=== PATIENT | female | born 1985 | race African-American/Black ===

== ENCOUNTER → 2016-11-06 | Outpatient (REF) | payer OTHER ==
[2016-11-06 16:30] LABS: ANION GAP 8 MEQ/L (8-16); BLOOD UREA NITROGEN 9 MG/DL (7-18); CALCIUM LEVEL 8.6 MG/DL (8.5-10.1); CARBON DIOXIDE LEVEL 27 MEQ/L (21-32); CHLORIDE LEVEL 104 MEQ/L (98-107); CREATININE FOR GFR 0.85 MG/DL (0.55-1.02); GLOMERULAR FILTRATION RATE > 60.0 (>60); GLUCOSE, FASTING 78 MG/DL (70-105); POTASSIUM SERUM 4.4 MEQ/L (3.5-5.1); SODIUM LEVEL 139 MEQ/L (136-145)
[2016-11-07 09:26] LABS: HIV SCRN NEGATIVE (NEGATIVE)
[2016-11-07 09:27] LABS: CONTROL LINE INT CTR LINE PRESENT; HIV SCRN1 NEGATIVE (NEGATIVE)
== END ==
LOC: M SFHCPLAZ 13:21
PROVIDERS: ATTEND Internal Medicine Infectious Disease
DX: Z11.3 Encounter for screening for infections with a predominantly sexual mode of transmission (principal); Z20.6 Contact with and (suspected) exposure to human immunodeficiency virus [HIV]

== ENCOUNTER → 2017-02-05 | Outpatient (REF) | payer OTHER ==
[2017-02-05 15:58] LABS: BASO % 0.5 % (0.0-1.0); EOS # 0.2 K/mm3 (0.0-0.50); EOS % 3.4 % (0.0-3.0); LARGE UNSTAINED CELL # 0.1 K/mm3 (0.0-0.4); LARGE UNSTAINED CELL % 2.2 % (0.0-4.0); LYMPH # 2.7 K/mm3 (1.5-4.5); LYMPH % 45.5 % (24.0-44.0); MEAN CORPUSCULAR HEMOGLOBIN 29.8 pg (27.0-33.0); MEAN CORPUSCULAR HGB CONC 33.8 g/dl (32.0-36.5); MEAN CORPUSCULAR VOLUME 88.4 fl (80.0-96.0); MONO # 0.3 K/mm3 (0.0-0.8); MONO % 5.9 % (0.0-5.0); NEUTROPHILS # 2.4 K/mm3 (1.8-7.7); NEUTROPHILS % 42.4 % (36.0-66.0); PLATELET COUNT, AUTOMATED 298 k/mm3 (150-450); RED CELL DISTRIBUTION WIDTH 14.3 % (11.5-14.5); WHITE BLOOD COUNT 5.6 K/mm3 (4.0-10.0)
[2017-02-05 16:10] LABS: ALBUMIN 3.7 GM/DL (3.2-5.2); ALBUMIN/GLOBULIN RATIO 1.16 (1.00-1.93); ALKALINE PHOSPHATASE 73 U/L (45-117); ALT/SGPT 22 U/L (12-78); ANION GAP 5 MEQ/L (8-16); AST/SGOT 16 U/L (15-37); BILIRUBIN,TOTAL 0.3 MG/DL (0.2-1.0); BLOOD UREA NITROGEN 9 MG/DL (7-18); CALCIUM LEVEL 8.7 MG/DL (8.5-10.1); CARBON DIOXIDE LEVEL 29 MEQ/L (21-32); CHLORIDE LEVEL 107 MEQ/L (98-107); CREATININE FOR GFR 0.85 MG/DL (0.55-1.02); GLOMERULAR FILTRATION RATE > 60.0 (>60); GLUCOSE, FASTING 85 MG/DL (70-105); POTASSIUM SERUM 4.5 MEQ/L (3.5-5.1); SODIUM LEVEL 141 MEQ/L (136-145); TOTAL PROTEIN 6.9 GM/DL (6.4-8.2)
== END ==
LOC: M SFHCPLAZ 12:59
PROVIDERS: ATTEND Internal Medicine Infectious Disease
DX: Z20.6 Contact with and (suspected) exposure to human immunodeficiency virus [HIV] (principal)

== ENCOUNTER → 2017-05-12 | Outpatient (REF) | payer OTHER | LOC: M SFHCPLAZ 15:36 | PROVIDERS: ATTEND Family Medicine | DX: Z11.4 Encounter for screening for human immunodeficiency virus [HIV] (principal) ==

== ENCOUNTER → 2022-01-30 | Outpatient (CLI) | payer OTHER ==
[2022-01-30 13:05] LABS: BASO # 0.1 10^3/uL (0.0-0.2); BASO % 0.7 % (0.0-1.0); EOS # 0.6 10^3/uL (0.0-0.5); EOS % 5.7 % (0.0-3.0); HEMATOCRIT 35.2 % (36.0-47.0); HEMOGLOBIN 12.5 g/dl (12.0-15.5); LYMPH # 3.2 10^3/uL (1.5-5.0); LYMPH % 29.7 % (24.0-44.0); MEAN CORPUSCULAR HEMOGLOBIN 29.1 pg (27.0-33.0); MEAN CORPUSCULAR HGB CONC 35.5 g/dl (32.0-36.5); MEAN CORPUSCULAR VOLUME 81.9 fl (80.0-96.0); MONO # 0.8 10^3/uL (0.0-0.8); MONO % 7.8 % (2.0-8.0); NEUTROPHILS % 55.7 % (36.0-66.0); PLATELET COUNT, AUTOMATED 370 10^3/uL (150-450); WHITE BLOOD COUNT 10.7 10^3/uL (4.0-10.0)
[2022-01-30 14:20] LABS: HEPATITIS C VIRUS ABY INDEX 0.1 INDEX (<0.8); HIV 1&2 SCREEN CENTAUR NEGATIVE (NEGATIVE)
[2022-01-30 16:19] LABS: GC DNA AMPLIFICATION NEGATIVE (NEGATIVE)
== END ==
LOC: M PLALAB 11:26
PROVIDERS: ATTEND Obstetrics & Gynecology
DX: Z36.9 Encounter for antenatal screening, unspecified (principal)

== ENCOUNTER 2022-02-11 10:32 | Emergency (ER) | payer OTHER ==
[~2022-02-11] VITALS: Ht 162.6 cm; Wt 56.6 kg
[2022-02-11] MEDS ORDERED: PRENTAB53 PO (10:41)
[2022-02-11] MEDS ORDERED: NS 1,000 ML IV ONE (11:20)
[2022-02-11 12:17] LABS: HEMATOCRIT 27.4 % (36.0-47.0); HEMOGLOBIN 9.6 g/dl (12.0-15.5); MEAN CORPUSCULAR HEMOGLOBIN 28.8 pg (27.0-33.0); MEAN CORPUSCULAR VOLUME 82.3 fl (80.0-96.0); PLATELET COUNT, AUTOMATED 273 10^3/uL (150-450); RED BLOOD COUNT 3.33 10^6/uL (4.00-5.40); WHITE BLOOD COUNT 9.6 10^3/uL (4.0-10.0)
[2022-02-11 12:53] LABS: ALBUMIN 2.9 GM/DL (3.2-5.2); ALT/SGPT 19 U/L (12-78); BILIRUBIN,DIRECT 0.2 MG/DL (0.0-0.2); BILIRUBIN,TOTAL 0.6 MG/DL (0.2-1.0); BLOOD UREA NITROGEN 11 MG/DL (7-18); CALCIUM LEVEL 8.7 MG/DL (8.5-10.1); CARBON DIOXIDE LEVEL 22 MEQ/L (21-32); CHLORIDE LEVEL 105 MEQ/L (98-107); CREATININE FOR GFR 0.48 MG/DL (0.55-1.30); ETHYL ALCOHOL (ETHANOL) < 0.003 % (0.000-0.010); GLOMERULAR FILTRATION RATE > 60.0 (>60); GLUCOSE, FASTING 83 MG/DL (70-100); POTASSIUM SERUM 3.4 MEQ/L (3.5-5.1); SALICYLATE LEVEL < 1.7 MG/DL (5.0-30.0); SODIUM LEVEL 139 MEQ/L (136-145); THYROID STIMULATING HORMONE 0.315 uIU/ML (0.358-3.740)
[2022-02-11 13:31] LABS: AMPHETAMINES LEVEL URINE POSITIVE (NEGATIVE); BARBITURATES URINE NEGATIVE (NEGATIVE); BENZODIAZEPINES URINE NEGATIVE (NEGATIVE); CANNABINOIDS URINE POSITIVE (NEGATIVE); COCAINE METABOLITE URINE NEGATIVE (NEGATIVE); METHADONE URINE NEGATIVE (NEGATIVE); OPIATES URINE NEGATIVE (NEGATIVE); PHENCYCLIDINE URINE NEGATIVE (NEGATIVE)
[2022-02-11 14:23] LABS: ACETAMINOPHEN LEVEL < 2.0 UG/ML (0.0-30.0)
[2022-02-11] MEDS ORDERED: LOPE1CAP5 PO (15:10)
[2022-02-11] MEDS ORDERED: PANT20TA6 PO (15:17)
[2022-02-11 15:34] VITALS: BP 102/63
== END 2022-02-11 15:50 | disposition home or self-care (01) ==
LOC: M ED 10:32
DX: O99.012 Anemia complicating pregnancy, second trimester (principal); O99.322 Drug use complicating pregnancy, second trimester; F19.10 Other psychoactive substance abuse, uncomplicated; F12.10 Cannabis abuse, uncomplicated; O99.342 Other mental disorders complicating pregnancy, second trimester; O99.282 Endocrine, nutritional and metabolic diseases complicating pregnancy, second trimester; O43.892 Other placental disorders, second trimester; Z3A.14 14 weeks gestation of pregnancy; Z79.899 Other long term (current) drug therapy

== ENCOUNTER → 2022-02-13 | Outpatient (CLI) | payer OTHER ==
[~2022-02-13] MED LIST: LOPE1CAP5 PO; PANT20TA6 PO; PRENTAB53 PO
[2022-02-13 13:01] LABS: HEMATOCRIT 29.3 % (36.0-47.0); HEMOGLOBIN 10.1 g/dl (12.0-15.5); MEAN CORPUSCULAR HEMOGLOBIN 28.7 pg (27.0-33.0); MEAN CORPUSCULAR HGB CONC 34.5 g/dl (32.0-36.5); MEAN CORPUSCULAR VOLUME 83.2 fl (80.0-96.0); PLATELET COUNT, AUTOMATED 288 10^3/uL (150-450); RED BLOOD COUNT 3.52 10^6/uL (4.00-5.40); WHITE BLOOD COUNT 10.3 10^3/uL (4.0-10.0)
== END ==
LOC: M LAB 12:36
PROVIDERS: ATTEND Physician Assistant
DX: D64.9 Anemia, unspecified (principal)

== ENCOUNTER 2022-02-20 21:26 | Emergency (ER) | payer OTHER ==
[~2022-02-20] VITALS: Ht 162.6 cm; Wt 56.4 kg
[2022-02-20 23:50] LABS: GC DNA AMPLIFICATION NEGATIVE (NEGATIVE)
[2022-02-21 01:06] LABS: BASO # 0.1 10^3/uL (0.0-0.2); BASO % 0.4 % (0.0-1.0); EOS # 0.2 10^3/uL (0.0-0.5); EOS % 1.7 % (0.0-3.0); HEMATOCRIT 30.7 % (36.0-47.0); HEMOGLOBIN 10.8 g/dl (12.0-15.5); LYMPH # 2.5 10^3/uL (1.5-5.0); LYMPH % 21.4 % (24.0-44.0); MEAN CORPUSCULAR HGB CONC 35.2 g/dl (32.0-36.5); MEAN CORPUSCULAR VOLUME 82.5 fl (80.0-96.0); MONO # 0.9 10^3/uL (0.0-0.8); MONO % 7.3 % (2.0-8.0); NEUTROPHILS # 8.1 10^3/uL (1.5-8.5); NEUTROPHILS % 68.9 % (36.0-66.0); PLATELET COUNT, AUTOMATED 344 10^3/uL (150-450); RED BLOOD COUNT 3.72 10^6/uL (4.00-5.40); WHITE BLOOD COUNT 11.8 10^3/uL (4.0-10.0)
[2022-02-21 01:27] LABS: BLOOD UREA NITROGEN 7 MG/DL (7-18); CALCIUM LEVEL 9.5 MG/DL (8.5-10.1); CARBON DIOXIDE LEVEL 25 MEQ/L (21-32); CHLORIDE LEVEL 104 MEQ/L (98-107); CREATININE FOR GFR 0.61 MG/DL (0.55-1.30); GLOMERULAR FILTRATION RATE > 60.0 (>60); GLUCOSE, FASTING 84 MG/DL (70-100); POTASSIUM SERUM 3.7 MEQ/L (3.5-5.1); SODIUM LEVEL 135 MEQ/L (136-145)
[2022-02-21 01:56] LABS: HCG, SERUM QUANTITATIVE 13542 MIU/ML
[2022-02-21 03:11] VITALS: BP 121/65
[2022-02-21 09:26] LABS: AMPHETAMINES LEVEL URINE POSITIVE (NEGATIVE); BARBITURATES URINE NEGATIVE (NEGATIVE); BENZODIAZEPINES URINE NEGATIVE (NEGATIVE); CANNABINOIDS URINE POSITIVE (NEGATIVE); COCAINE METABOLITE URINE NEGATIVE (NEGATIVE); METHADONE URINE NEGATIVE (NEGATIVE); OPIATES URINE NEGATIVE (NEGATIVE); PHENCYCLIDINE URINE NEGATIVE (NEGATIVE)
== END 2022-02-21 03:20 | disposition home or self-care (01) ==
LOC: M ED 21:26
DX: O26.892 Other specified pregnancy related conditions, second trimester (principal); O09.522 Supervision of elderly multigravida, second trimester; O34.12 Maternal care for benign tumor of corpus uteri, second trimester; Z3A.15 15 weeks gestation of pregnancy

== ENCOUNTER 2022-03-16 15:40 | Inpatient (IN) | payer MEDICAID, OTHER ==
[~2022-03-16] VITALS: Ht 162.6 cm; Wt 58.1 kg
[2022-03-16 17:24] LABS: HEMATOCRIT 28.4 % (36.0-47.0); HEMOGLOBIN 9.9 g/dl (12.0-15.5); MEAN CORPUSCULAR HEMOGLOBIN 29.5 pg (27.0-33.0); MEAN CORPUSCULAR HGB CONC 34.9 g/dl (32.0-36.5); MEAN CORPUSCULAR VOLUME 84.5 fl (80.0-96.0); PLATELET COUNT, AUTOMATED 295 10^3/uL (150-450); RED BLOOD COUNT 3.36 10^6/uL (4.00-5.40); WHITE BLOOD COUNT 11.1 10^3/uL (4.0-10.0)
[2022-03-16 17:45] LABS: HCG, SERUM QUALITATIVE POSITIVE (NEGATIVE)
[2022-03-16 17:51] LABS: AMPHETAMINES LEVEL URINE POSITIVE (NEGATIVE); BARBITURATES URINE NEGATIVE (NEGATIVE); BENZODIAZEPINES URINE NEGATIVE (NEGATIVE); CANNABINOIDS URINE POSITIVE (NEGATIVE); COCAINE METABOLITE URINE POSITIVE (NEGATIVE); METHADONE URINE NEGATIVE (NEGATIVE); OPIATES URINE NEGATIVE (NEGATIVE); PHENCYCLIDINE URINE NEGATIVE (NEGATIVE)
[2022-03-16 17:59] LABS: RSV AMPLIFICATION NEGATIVE (NEGATIVE)
[2022-03-16 18:00] LABS: ACETAMINOPHEN LEVEL < 2.0 UG/ML (10.0-30.0); ALBUMIN 3.1 GM/DL (3.2-5.2); ALT/SGPT 14 U/L (12-78); BILIRUBIN,DIRECT 0.1 MG/DL (0.0-0.2); BILIRUBIN,TOTAL 0.5 MG/DL (0.2-1.0); BLOOD UREA NITROGEN 6 MG/DL (7-18); CALCIUM LEVEL 8.5 MG/DL (8.5-10.1); CARBON DIOXIDE LEVEL 23 MEQ/L (21-32); CHLORIDE LEVEL 107 MEQ/L (98-107); CREATININE FOR GFR 0.65 MG/DL (0.55-1.30); ETHYL ALCOHOL (ETHANOL) < 0.003 % (0.000-0.010); GLOMERULAR FILTRATION RATE > 60.0 (>60); GLUCOSE, FASTING 88 MG/DL (70-100); POTASSIUM SERUM 3.5 MEQ/L (3.5-5.1); SALICYLATE LEVEL 2.7 MG/DL (5.0-30.0); SODIUM LEVEL 139 MEQ/L (136-145); TOTAL PROTEIN 6.6 GM/DL (6.4-8.2)
[2022-03-16] MEDS ORDERED: med rec comment (19:14)
[2022-03-16] MEDS ORDERED: HOME MED LIST COMPLETE! XX SCH (19:15)
[2022-03-17] MEDS ORDERED: PRENATAL VITAMINS CHEWABLE TABLET PO SCH (09:00)
[2022-03-17] MEDS: NICOTINE 21MG/24HR 1 EA TRANSDERMAL TD SCH (09:00)
[2022-03-17] MEDS ORDERED: MOM 30ML SUSPENSION UDC PO PRN (12:15)
[2022-03-17] MEDS ORDERED: IBUPROFEN 400MG TAB PO PRN (12:15)
[2022-03-17] MEDS ORDERED: MAALOX 30 ML SUSP *UDC PO PRN (12:15)
[2022-03-17] MEDS ORDERED: traZODone 50 MG TAB PO PRN (12:15)
[2022-03-18 06:26] VITALS: BP 118/58
[2022-03-18 08:41] VITALS: BP 118/58
[2022-03-18] MEDS: NICOTINE 21MG/24HR 1 EA TRANSDERMAL TD SCH (09:00)
[2022-03-18] MEDS: PRENATAL VITAMINS CHEWABLE TABLET PO SCH (13:04)
[2022-03-18] MEDS ORDERED: OLANZapine ORAL DISINTEGRATING TAB 5MG PO PRN (13:05)
[2022-03-19 06:19] VITALS: BP 106/53
[2022-03-19] MEDS: PRENATAL VITAMINS CHEWABLE TABLET PO SCH (10:05)
[2022-03-19] MEDS: NICOTINE 21MG/24HR 1 EA TRANSDERMAL TD SCH (10:05)
[2022-03-19 18:25] VITALS: BP 112/69
[2022-03-20 07:02] VITALS: BP 94/55
[2022-03-20] MEDS: PRENATAL VITAMINS CHEWABLE TABLET PO SCH (08:24)
[2022-03-20] MEDS: NICOTINE 21MG/24HR 1 EA TRANSDERMAL TD SCH (08:24)
[2022-03-20] MEDS ORDERED: NICO14DI6 TOP (12:10)
== END 2022-03-20 15:11 | disposition home or self-care (01) | DRG 566 ==
LOC: M ED 15:40 → M ED INP 03-17 12:14 → M PSY 03-17 15:50
PROVIDERS: ADMIT Psychiatry & Neurology Psychiatry; ATTEND Psychiatry & Neurology Psychiatry
DX: O99.342 Other mental disorders complicating pregnancy, second trimester (principal); F12.950 Cannabis use, unspecified with psychotic disorder with delusions; O99.322 Drug use complicating pregnancy, second trimester; O34.219 Maternal care for unspecified type scar from previous cesarean delivery; E86.0 Dehydration; F16.950 Hallucinogen use, unspecified with hallucinogen-induced psychotic disorder with delusions; F15.950 Other stimulant use, unspecified with stimulant-induced psychotic disorder with delusions; F32.A Depression, unspecified; Z3A.19 19 weeks gestation of pregnancy; F43.9 Reaction to severe stress, unspecified; Z20.822 Contact with and (suspected) exposure to COVID-19; F14.90 Cocaine use, unspecified, uncomplicated; O32.1XX0 Maternal care for breech presentation, not applicable or unspecified; R44.0 Auditory hallucinations; O99.332 Smoking (tobacco) complicating pregnancy, second trimester; F17.200 Nicotine dependence, unspecified, uncomplicated; O99.282 Endocrine, nutritional and metabolic diseases complicating pregnancy, second trimester; Z71.6 Tobacco abuse counseling; F32.9 Major depressive disorder, single episode, unspecified

== ENCOUNTER 2022-04-17 05:14 | Inpatient (IN) | payer MEDICAID, OTHER ==
[~2022-04-17] VITALS: Ht 162.6 cm; Wt 64.0 kg
[~2022-04-17 05:14] MED LIST changes: +NICO14DI6 TOP; +med rec comment
[2022-04-17] MEDS ORDERED: MIDAZOLAM INJ 2MG/2ML VIAL (J2250 PER 1MG) IM ONE (05:50)
[2022-04-17] MEDS ORDERED: chlorproMAZINE INJ 50MG/2ML AMP (J3230) IM ONE (05:50)
[2022-04-17] MEDS ORDERED: MIDAZOLAM 5MG/ML 1ML VIAL (J2250 PER 1MG) IM ONE (05:55)
[2022-04-17 10:13] LABS: HEMATOCRIT 28.4 % (36.0-47.0); MEAN CORPUSCULAR HEMOGLOBIN 29.7 pg (27.0-33.0); MEAN CORPUSCULAR HGB CONC 35.2 g/dl (32.0-36.5); MEAN CORPUSCULAR VOLUME 84.3 fl (80.0-96.0); PLATELET COUNT, AUTOMATED 287 10^3/uL (150-450); RED BLOOD COUNT 3.37 10^6/uL (4.00-5.40); WHITE BLOOD COUNT 7.8 10^3/uL (4.0-10.0)
[2022-04-17 10:49] LABS: ACETAMINOPHEN LEVEL < 2.0 UG/ML (10.0-30.0); ALBUMIN 3.1 GM/DL (3.2-5.2); ALT/SGPT 12 U/L (12-78); BILIRUBIN,DIRECT 0.2 MG/DL (0.0-0.2); BILIRUBIN,TOTAL 0.5 MG/DL (0.2-1.0); BLOOD UREA NITROGEN 3 MG/DL (7-18); CALCIUM LEVEL 8.3 MG/DL (8.5-10.1); CARBON DIOXIDE LEVEL 19 MEQ/L (21-32); CHLORIDE LEVEL 107 MEQ/L (98-107); CREATININE FOR GFR 0.55 MG/DL (0.55-1.30); ETHYL ALCOHOL (ETHANOL) 0.006 % (0.000-0.010); GLOMERULAR FILTRATION RATE > 60.0 (>60); GLUCOSE, FASTING 73 MG/DL (70-100); POTASSIUM SERUM 3.9 MEQ/L (3.5-5.1); SALICYLATE LEVEL 2.5 MG/DL (5.0-30.0); SODIUM LEVEL 135 MEQ/L (136-145); THYROID STIMULATING HORMONE 0.671 uIU/ML (0.358-3.740); TOTAL PROTEIN 6.3 GM/DL (6.4-8.2)
[2022-04-17 10:58] LABS: RSV AMPLIFICATION NEGATIVE (NEGATIVE)
[2022-04-18 19:42] LABS: AMPHETAMINES LEVEL URINE POSITIVE (NEGATIVE); BARBITURATES URINE NEGATIVE (NEGATIVE); BENZODIAZEPINES URINE POSITIVE (NEGATIVE); CANNABINOIDS URINE NEGATIVE (NEGATIVE); COCAINE METABOLITE URINE NEGATIVE (NEGATIVE); METHADONE URINE NEGATIVE (NEGATIVE); OPIATES URINE NEGATIVE (NEGATIVE); PHENCYCLIDINE URINE NEGATIVE (NEGATIVE)
[2022-04-19] MEDS ORDERED: MOM 30ML SUSPENSION UDC PO PRN (00:05)
[2022-04-19] MEDS ORDERED: MAALOX 30 ML SUSP *UDC PO PRN (00:05)
[2022-04-19 00:55] VITALS: BP 120/59
[2022-04-19] MEDS ORDERED: PRENTAB53 PO (09:32)
[2022-04-19] MEDS ORDERED: HOME MED LIST COMPLETE! XX SCH (09:35)
[2022-04-20 06:23] VITALS: BP 98/57
[2022-04-20] MEDS: CEPACOL LOZENGE PO PRN (16:03)
[2022-04-20] MEDS: LURASIDONE HCL 40MG TAB (LATUDA) PO SCH (17:01)
[2022-04-21 06:34] VITALS: BP 105/62
[2022-04-21] MEDS: PRENATAL VITAMINS CHEWABLE TABLET PO SCH (13:48)
[2022-04-21] MEDS: CEPACOL LOZENGE PO PRN (16:31)
[2022-04-21 17:10] VITALS: BP 102/65
[2022-04-21] MEDS: LURASIDONE HCL 40MG TAB (LATUDA) PO SCH (17:24)
[2022-04-22 06:10] VITALS: BP 98/63
[2022-04-22] MEDS: PRENATAL VITAMINS CHEWABLE TABLET PO SCH (09:06)
[2022-04-22 17:15] VITALS: BP 118/74
[2022-04-22] MEDS: LURASIDONE HCL 40MG TAB (LATUDA) PO SCH (18:00)
[2022-04-23 07:48] VITALS: BP 110/72
[2022-04-23] MEDS: PRENATAL VITAMINS CHEWABLE TABLET PO SCH (08:52)
[2022-04-23 16:46] VITALS: BP 96/52
[2022-04-23] MEDS: LURASIDONE HCL 40MG TAB (LATUDA) PO SCH (17:51)
[2022-04-24 07:15] VITALS: BP 113/62
[2022-04-24] MEDS: PRENATAL VITAMINS CHEWABLE TABLET PO SCH (09:46)
[2022-04-24] MEDS: LURASIDONE HCL 40MG TAB (LATUDA) PO SCH (18:00)
[2022-04-24 18:34] VITALS: BP 115/70
[2022-04-25 06:43] VITALS: BP 115/66
[2022-04-25] MEDS: PRENATAL VITAMINS CHEWABLE TABLET PO SCH (09:35)
[2022-04-25 16:37] VITALS: BP 117/60
[2022-04-25] MEDS: LURASIDONE HCL 40MG TAB (LATUDA) PO SCH (18:00)
[2022-04-26 06:43] VITALS: BP 102/63
[2022-04-26] MEDS: ACETAMINOPHEN TAB 650MG DOSE (2X325MG) PO PRN (09:06)
[2022-04-26] MEDS: PRENATAL VITAMINS CHEWABLE TABLET PO SCH (09:06)
[2022-04-26 16:24] VITALS: BP 102/57
[2022-04-26] MEDS: LURASIDONE HCL 40MG TAB (LATUDA) PO SCH (18:00)
[2022-04-26] MEDS: diphenhydrAMINE 25MG CAP PO PRN (20:40)
[2022-04-27 06:22] VITALS: BP 111/56
[2022-04-27] MEDS: PRENATAL VITAMINS CHEWABLE TABLET PO SCH (09:52)
[2022-04-27 16:28] VITALS: BP 106/57
[2022-04-27] MEDS: LURASIDONE HCL 40MG TAB (LATUDA) PO SCH (18:00)
[2022-04-28 06:07] VITALS: BP 98/58
[2022-04-28] MEDS: PRENATAL VITAMINS CHEWABLE TABLET PO SCH (09:46)
[2022-04-28] MEDS: LURASIDONE HCL 40MG TAB (LATUDA) PO SCH (17:11)
[2022-04-28] MEDS: ACETAMINOPHEN TAB 650MG DOSE (2X325MG) PO PRN (17:59)
[2022-04-28 18:10] VITALS: BP 101/56
[2022-04-29 06:30] VITALS: BP 92/52
[2022-04-29] MEDS: PRENATAL VITAMINS CHEWABLE TABLET PO SCH (08:30)
[2022-04-29] MEDS: LURASIDONE HCL 40MG TAB (LATUDA) PO SCH (18:00)
[2022-04-29] MEDS: ACETAMINOPHEN TAB 650MG DOSE (2X325MG) PO PRN (18:37)
[2022-04-29] MEDS: diphenhydrAMINE 25MG CAP PO PRN (20:38)
[2022-04-30 06:25] VITALS: BP 108/78
[2022-04-30] MEDS: PRENATAL VITAMINS CHEWABLE TABLET PO SCH (10:04)
[2022-04-30] MEDS: LURASIDONE HCL 40MG TAB (LATUDA) PO SCH (18:00)
[2022-04-30 19:14] VITALS: BP 129/66
[2022-05-01 06:36] VITALS: BP 102/52
[2022-05-01] MEDS: PRENATAL VITAMINS CHEWABLE TABLET PO SCH (08:32)
[2022-05-01 17:47] VITALS: BP 133/83
[2022-05-01] MEDS: LURASIDONE HCL 40MG TAB (LATUDA) PO SCH (18:00)
[2022-05-01] MEDS: ACETAMINOPHEN TAB 650MG DOSE (2X325MG) PO PRN (18:56)
[2022-05-02 06:20] VITALS: BP 100/52
[2022-05-02] MEDS: PRENATAL VITAMINS CHEWABLE TABLET PO SCH (09:26)
[2022-05-02] MEDS: ACETAMINOPHEN TAB 650MG DOSE (2X325MG) PO PRN (13:08)
[2022-05-02 16:50] VITALS: BP 139/69
[2022-05-02] MEDS: LURASIDONE HCL 40MG TAB (LATUDA) PO SCH (18:00)
[2022-05-03 00:35] LABS: BASO % 0.3 % (0.0-1.0); EOS # 0.3 10^3/uL (0.0-0.5); EOS % 2.9 % (0.0-3.0); HEMATOCRIT 26.5 % (36.0-47.0); HEMOGLOBIN 9.2 g/dl (12.0-15.5); LYMPH # 2.5 10^3/uL (1.5-5.0); LYMPH % 25.6 % (24.0-44.0); MEAN CORPUSCULAR HEMOGLOBIN 29.7 pg (27.0-33.0); MEAN CORPUSCULAR HGB CONC 34.7 g/dl (32.0-36.5); MEAN CORPUSCULAR VOLUME 85.5 fl (80.0-96.0); MONO % 10.6 % (2.0-8.0); NEUTROPHILS # 5.9 10^3/uL (1.5-8.5); PLATELET COUNT, AUTOMATED 334 10^3/uL (150-450); WHITE BLOOD COUNT 9.8 10^3/uL (4.0-10.0)
[2022-05-03 00:44] LABS: BLOOD UREA NITROGEN 6 MG/DL (7-18); CALCIUM LEVEL 8.7 MG/DL (8.5-10.1); CARBON DIOXIDE LEVEL 27 MEQ/L (21-32); CHLORIDE LEVEL 107 MEQ/L (98-107); CREATININE FOR GFR 0.49 MG/DL (0.55-1.30); GLOMERULAR FILTRATION RATE > 60.0 (>60); GLUCOSE, FASTING 84 MG/DL (70-100); MAGNESIUM LEVEL 1.7 MG/DL (1.8-2.4); POTASSIUM SERUM 3.8 MEQ/L (3.5-5.1); SODIUM LEVEL 138 MEQ/L (136-145)
[2022-05-03 06:22] VITALS: BP 121/66
[2022-05-03] MEDS: PRENATAL VITAMINS CHEWABLE TABLET PO SCH (10:12)
[2022-05-03] MEDS: LURASIDONE HCL 40MG TAB (LATUDA) PO SCH (17:14)
[2022-05-03 18:12] VITALS: BP 110/68
[2022-05-03] MEDS: diphenhydrAMINE 25MG CAP PO PRN (19:55)
[2022-05-03] MEDS ORDERED: MAGNESIUM OXIDE 400MG TAB (MAG-OX) PO ONE (23:00)
[2022-05-03] MEDS ORDERED: diphenhydrAMINE 25MG CAP PO ONE (23:00)
[2022-05-04] MEDS ORDERED: PRED20TA PO (15:10)
[2022-05-04] MEDS ORDERED: LATU40TA2 PO (15:10)
[2022-05-04] MEDS ORDERED: MOM30SS2 PO (15:10)
[2022-05-04 17:54] VITALS: BP 139/69
[2022-05-04] MEDS ORDERED: MOM 30ML SUSPENSION UDC PO PRN (22:10)
[2022-05-04] MEDS ORDERED: diphenhydrAMINE 25MG CAP PO PRN (22:10)
[2022-05-04] MEDS ORDERED: CEPACOL LOZENGE PO PRN (22:10)
[2022-05-04] MEDS ORDERED: ACETAMINOPHEN TAB 650MG DOSE (2X325MG) PO PRN (22:10)
[2022-05-04] MEDS ORDERED: MAALOX 30 ML SUSP *UDC PO PRN (22:10)
[2022-05-05] MEDS: LURASIDONE HCL 40MG TAB (LATUDA) PO SCH ×2 (04:04→17:35)
[2022-05-05 08:41] VITALS: BP 111/62
[2022-05-05] MEDS ORDERED: predniSONE 20 MG TAB PO SCH (09:00)
[2022-05-05] MEDS: PRENATAL VITAMINS CHEWABLE TABLET PO SCH (10:07)
[2022-05-05 16:40] VITALS: BP 127/73
[2022-05-05] MEDS: diphenhydrAMINE 25MG CAP PO PRN (20:22)
[2022-05-06 06:37] VITALS: BP_SYST 116; BP_DIAS 69; BP_DIAS 9
[2022-05-06] MEDS: predniSONE 20 MG TAB PO SCH (09:17)
[2022-05-06] MEDS: PRENATAL VITAMINS CHEWABLE TABLET PO SCH (09:17)
[2022-05-06 16:37] VITALS: BP 110/68
[2022-05-06] MEDS: LURASIDONE HCL 40MG TAB (LATUDA) PO SCH (17:14)
[2022-05-07 06:24] VITALS: BP 96/55
[2022-05-07] MEDS: predniSONE 20 MG TAB PO SCH (08:24)
[2022-05-07] MEDS: PRENATAL VITAMINS CHEWABLE TABLET PO SCH (08:24)
[2022-05-07 16:02] VITALS: BP 111/65
[2022-05-07] MEDS: LURASIDONE HCL 40MG TAB (LATUDA) PO SCH (17:14)
[2022-05-08 06:23] VITALS: BP 106/58
[2022-05-08] MEDS: predniSONE 20 MG TAB PO SCH ×2 (08:39→21:43)
[2022-05-08] MEDS: PRENATAL VITAMINS CHEWABLE TABLET PO SCH (08:39)
[2022-05-08] MEDS: LURASIDONE HCL 40MG TAB (LATUDA) PO SCH (15:57)
[2022-05-08] MEDS: POLYVINYL ALCOHOL OPHTH SOLN 15 ML(LIQUITEARS) OS PRN (15:59)
[2022-05-08 18:34] VITALS: BP 111/69
[2022-05-09 07:02] VITALS: BP 102/58
[2022-05-09] MEDS: PRENATAL VITAMINS CHEWABLE TABLET PO SCH (09:20)
[2022-05-09] MEDS: predniSONE 20 MG TAB PO SCH (09:21)
[2022-05-09] MEDS: POLYVINYL ALCOHOL OPHTH SOLN 15 ML(LIQUITEARS) OS PRN ×2 (11:41→16:54)
[2022-05-09] MEDS: LURASIDONE HCL 40MG TAB (LATUDA) PO SCH (17:23)
[2022-05-10] MEDS: predniSONE 20 MG TAB PO SCH (09:11)
[2022-05-10] MEDS: PRENATAL VITAMINS CHEWABLE TABLET PO SCH (09:11)
[2022-05-10] MEDS: POLYVINYL ALCOHOL OPHTH SOLN 15 ML(LIQUITEARS) OS PRN ×3 (09:12→19:51)
[2022-05-10 16:25] VITALS: BP 119/65
[2022-05-10] MEDS: LURASIDONE HCL 40MG TAB (LATUDA) PO SCH (17:06)
[2022-05-10] MEDS: diphenhydrAMINE 25MG CAP PO PRN (19:50)
[2022-05-11 06:35] VITALS: BP 102/55
[2022-05-11] MEDS: predniSONE 20 MG TAB PO SCH (08:11)
[2022-05-11] MEDS: PRENATAL VITAMINS CHEWABLE TABLET PO SCH (08:12)
[2022-05-11] MEDS: POLYVINYL ALCOHOL OPHTH SOLN 15 ML(LIQUITEARS) OS PRN ×2 (08:13→20:12)
[2022-05-11] MEDS: LURASIDONE HCL 40MG TAB (LATUDA) PO SCH (17:12)
[2022-05-11] MEDS: diphenhydrAMINE 25MG CAP PO PRN (20:12)
[2022-05-12 06:24] VITALS: BP 106/62
[2022-05-12] MEDS: predniSONE 20 MG TAB PO SCH (08:19)
[2022-05-12] MEDS: PRENATAL VITAMINS CHEWABLE TABLET PO SCH (08:20)
[2022-05-12] MEDS: POLYVINYL ALCOHOL OPHTH SOLN 15 ML(LIQUITEARS) OS PRN (09:04)
[2022-05-12 17:39] VITALS: BP 118/64
[2022-05-12] MEDS: LURASIDONE HCL 40MG TAB (LATUDA) PO SCH (17:59)
[2022-05-12] MEDS: diphenhydrAMINE 25MG CAP PO PRN (18:44)
[2022-05-13 06:45] VITALS: BP 115/67
[2022-05-13] MEDS: predniSONE 20 MG TAB PO SCH (08:01)
[2022-05-13] MEDS: PRENATAL VITAMINS CHEWABLE TABLET PO SCH (08:01)
[2022-05-13] MEDS ORDERED: POLYOPD OS (09:27)
[2022-05-13] MEDS ORDERED: PRED20TA PO (09:27)
== END 2022-05-13 14:02 | disposition home or self-care (01) | DRG 566 ==
LOC: M ED 05:14 → M ED INP 04-19 00:05 → M PSY 04-19 00:52 → UNDODISIN 05-04 02:58 → M PSY 05-04 16:18
PROVIDERS: ADMIT Student in an Organized Health Care Education/Training Program; ATTEND Student in an Organized Health Care Education/Training Program
DX: O99.342 Other mental disorders complicating pregnancy, second trimester (principal); F60.89 Other specific personality disorders; F11.90 Opioid use, unspecified, uncomplicated; F15.90 Other stimulant use, unspecified, uncomplicated; F29 Unspecified psychosis not due to a substance or known physiological condition; Z3A.26 26 weeks gestation of pregnancy; O99.322 Drug use complicating pregnancy, second trimester; F17.200 Nicotine dependence, unspecified, uncomplicated; O99.332 Smoking (tobacco) complicating pregnancy, second trimester; G51.0 Bell's palsy; O99.352 Diseases of the nervous system complicating pregnancy, second trimester

== ENCOUNTER 2022-05-04 00:08 | Observation (INO) | payer OTHER ==
[~2022-05-04] VITALS: Ht 162.6 cm; Wt 71.2 kg
[2022-05-04] MEDS ORDERED: predniSONE 20 MG TAB PO SCH (01:00)
[2022-05-04] MEDS ORDERED: ACETAMINOPHEN TAB 650MG DOSE (2X325MG) PO PRN (02:55)
[2022-05-04] MEDS ORDERED: CEPACOL LOZENGE PO PRN (02:55)
[2022-05-04] MEDS ORDERED: MOM 30ML SUSPENSION UDC PO PRN (02:55)
[2022-05-04 03:02] VITALS: BP 110/71
[2022-05-04 03:50] LABS: RSV AMPLIFICATION NEGATIVE (NEGATIVE)
[2022-05-04 06:00] VITALS: BP 119/70
[2022-05-04 06:09] LABS: BASO % 0.3 % (0.0-1.0); EOS # 0.2 10^3/uL (0.0-0.5); EOS % 2.4 % (0.0-3.0); HEMATOCRIT 27.9 % (36.0-47.0); HEMOGLOBIN 9.7 g/dl (12.0-15.5); LYMPH # 1.7 10^3/uL (1.5-5.0); LYMPH % 17.3 % (24.0-44.0); MEAN CORPUSCULAR HEMOGLOBIN 29.3 pg (27.0-33.0); MEAN CORPUSCULAR HGB CONC 34.8 g/dl (32.0-36.5); MEAN CORPUSCULAR VOLUME 84.3 fl (80.0-96.0); MONO # 0.5 10^3/uL (0.0-0.8); NEUTROPHILS # 7.5 10^3/uL (1.5-8.5); NEUTROPHILS % 74.5 % (36.0-66.0); PLATELET COUNT, AUTOMATED 324 10^3/uL (150-450); RED BLOOD COUNT 3.31 10^6/uL (4.00-5.40); WHITE BLOOD COUNT 10.1 10^3/uL (4.0-10.0)
[2022-05-04 06:37] LABS: ERYTHROCYTE SEDIMENTATION RATE 48 mm/hr (0-20)
[2022-05-04 06:39] LABS: ALBUMIN 2.6 GM/DL (3.2-5.2); ALT/SGPT 18 U/L (12-78); BILIRUBIN,TOTAL 0.2 MG/DL (0.2-1.0); BLOOD UREA NITROGEN 4 MG/DL (7-18); C REACTIVE PROTEIN QUANTITATIV 0.76 MG/DL (0.00-0.30); CALCIUM LEVEL 8.5 MG/DL (8.5-10.1); CARBON DIOXIDE LEVEL 23 MEQ/L (21-32); CHLORIDE LEVEL 108 MEQ/L (98-107); CREATININE FOR GFR 0.51 MG/DL (0.55-1.30); GLOMERULAR FILTRATION RATE > 60.0 (>60); GLUCOSE, FASTING 84 MG/DL (70-100); MAGNESIUM LEVEL 1.9 MG/DL (1.8-2.4); POTASSIUM SERUM 3.9 MEQ/L (3.5-5.1); SODIUM LEVEL 137 MEQ/L (136-145)
[2022-05-04] MEDS ORDERED: PRENATAL VITAMINS CHEWABLE TABLET PO SCH (09:00)
[2022-05-04] MEDS ORDERED: HOME MED LIST COMPLETE! XX SCH (09:20)
[2022-05-04 11:56] LABS: INR 0.98; PROTHROMBIN TIME 13.4 SECONDS (12.7-14.5)
[2022-05-04 11:57] LABS: PARTIAL THROMBOPLASTIN TIME 29.7 SECONDS (25.9-37.0)
[2022-05-04 14:00] VITALS: BP 118/69
[2022-05-04] MEDS ORDERED: LATU40TA2 PO (15:10)
[2022-05-04] MEDS ORDERED: PRED20TA PO (15:10)
[2022-05-04] MEDS ORDERED: MOM30SS2 PO (15:10)
[2022-05-04] MEDS ORDERED: LURASIDONE HCL 40MG TAB (LATUDA) PO SCH (18:00)
[2022-05-11] MEDS ORDERED: predniSONE 20 MG TAB PO SCH (09:00)
[2022-05-13] MEDS ORDERED: predniSONE 10 MG TAB PO SCH (09:00)
== END 2022-05-04 16:00 | disposition home or self-care (01) ==
LOC: M ED INP 00:23 → INTOOBSV 00:23 → M MSPAV 03:00
PROVIDERS: ADMIT Internal Medicine; ATTEND Internal Medicine
DX: O99.352 Diseases of the nervous system complicating pregnancy, second trimester (principal); G51.0 Bell's palsy; O99.322 Drug use complicating pregnancy, second trimester; O99.332 Smoking (tobacco) complicating pregnancy, second trimester; F15.10 Other stimulant abuse, uncomplicated; F32.A Depression, unspecified; F41.9 Anxiety disorder, unspecified; K02.9 Dental caries, unspecified; Z3A.26 26 weeks gestation of pregnancy
CPT/HCPCS: 36415; 70551; 80053; 81000; 81015; 83735; 84550; 85025; 85610; 85652; 85730; 86140; 86618; 87631; J7512

== ENCOUNTER 2022-07-25 02:07 | Inpatient (IN) | payer OTHER ==
[~2022-07-25] VITALS: Ht 162.6 cm; Wt 62.7 kg
[2022-07-25] VITALS (9 sets, daily range): BP systolic 98–118; BP diastolic 58–70
[~2022-07-25 02:07] MED LIST changes: +LATU40TA2 PO; +MOM30SS2 PO; +POLYOPD OS; +PRED20TA PO
[2022-07-25 02:58] LABS: HEMATOCRIT 29.7 % (36.0-47.0); HEMOGLOBIN 10.4 g/dl (12.0-15.5); MEAN CORPUSCULAR HEMOGLOBIN 28.7 pg (27.0-33.0); MEAN CORPUSCULAR VOLUME 81.8 fl (80.0-96.0); PLATELET COUNT, AUTOMATED 318 10^3/uL (150-450); RED BLOOD COUNT 3.63 10^6/uL (4.00-5.40); WHITE BLOOD COUNT 10.1 10^3/uL (4.0-10.0)
[2022-07-25 04:03] LABS: AMPHETAMINES URINE REFLEX NEGATIVE (NEGATIVE); BENZODIAZEPINES URINE REFLEX NEGATIVE (NEGATIVE); COCAINE METABOLITE URINE REFLE NEGATIVE (NEGATIVE); METHADONE URINE REFLEX NEGATIVE (NEGATIVE); OPIATES URINE REFLEX NEGATIVE (NEGATIVE); PHENCYCLIDINE URINE REFLEX NEGATIVE (NEGATIVE)
[2022-07-25 04:07] LABS: HIV 1&2 SCREEN CENTAUR NEGATIVE (NEGATIVE)
[2022-07-25] MEDS ORDERED: LACTATED RINGER'S 1000 ML IV STA (04:07)
[2022-07-25] MEDS ORDERED: LR 1,000 ML IV ONE (04:10)
[2022-07-25] MEDS ORDERED: CARBOPROST TROMETHAMINE 250 MCG/ML AMP IM PRN (04:10)
[2022-07-25] MEDS ORDERED: LIDOCAINE 1% MDV 20ML VIAL INFIL PRN (04:10)
[2022-07-25] MEDS ORDERED: TRANEXAMIC ACID INJection 1,000 MG in NS 100 ML IV PRN (04:10)
[2022-07-25] MEDS ORDERED: LR 1,000 ML IV SCH ×2 (04:10)
[2022-07-25 04:15] LABS: HEPATITIS C VIRUS ABY INDEX 0.1 INDEX (<0.8)
[2022-07-25] MEDS ORDERED: ceFAZolin SOD 2 GM in IV 1 EA IV ONE (05:00)
[2022-07-25] MEDS ORDERED: BICITRA 30ML SOLN UDC PO ONE (05:00)
[2022-07-25] MEDS ORDERED: AZITHROMYCIN INJ 500 MG, VIAL MATE ADAPTER 1 EACH in NS 250 ML IV ONE (05:00)
[2022-07-25 05:23] LABS: GC DNA AMPLIFICATION NEGATIVE (NEGATIVE)
[2022-07-25] MEDS ORDERED: ACET-897 PO (08:52)
[2022-07-25] MEDS ORDERED: HOME MED LIST COMPLETE! XX SCH (08:55)
[2022-07-25 10:26] LABS: CORD GAS ABE V -4.1; CORD GAS HCO3 V 21.7 MEQ/L; CORD GAS O2 SAT V 59.5 %; CORD GAS PCO2 V 42.3 mmHg; CORD GAS PH V 7.328 UNITS; CORD GAS SBC V 20.2 MEQ/L
[2022-07-25 10:30] LABS: CORD GAS ABE A -5.6; CORD GAS HCO3 A 23.1 MEQ/L; CORD GAS O2 SAT A 26.1 %; CORD GAS PH A 7.21 UNITS; CORD GAS PO2 A 15.1 mmHg; CORD GAS SBC A 18.4 MEQ/L; CORD GAS TCO2 A 24.9 MEQ/L
[2022-07-25] MEDS ORDERED: oxyCODONE 5MG TAB PO PRN ×3 (11:35→12:25)
[2022-07-25] MEDS ORDERED: RHOGAM 300 MCG (1500 IU) INJ (J2790) IM SCH (11:35)
[2022-07-25] MEDS ORDERED: ONDANSETRON 4MG TAB PO PRN (11:35)
[2022-07-25] MEDS ORDERED: OXYTOCIN DRIP 30 UNITS in IV 1 EA IV SCH (11:35)
[2022-07-25] MEDS ORDERED: OXYTOCIN 30 UNITS IN 0.9% NaCl 500ML IV BAG (J2590) As Ordered ONE (11:36)
[2022-07-25] MEDS ORDERED: KETOROLAC 30 MG/ML 1ML VIAL IV SCH (12:00)
[2022-07-25] MEDS ORDERED: fentaNYL 100 MCG/2 ML INJECTION IV PRN (12:25)
[2022-07-25] MEDS ORDERED: HYDROMORPHONE HCL 0.5 MG/ 0.5 ML SYRINGE (J1170 PER 1) IV PRN (12:25)
[2022-07-25] MEDS ORDERED: ONDANSETRON 4MG 2ML VIAL IV PRN (12:30)
[2022-07-25] MEDS ORDERED: NALOXONE INJ 0.4MG/1ML VIAL IV PRN ×2 (12:30)
[2022-07-25] MEDS ORDERED: MEPERIDINE INJ 25 MG/ML VIAL (J2175) IV PRN (12:30)
[2022-07-25] MEDS ORDERED: METOCLOPRAMIDE INJ 10MG/2ML VIAL IV PRN (12:30)
[2022-07-25] MEDS: SLF 3 ML SYR IV SCH ×2 (12:30→20:30)
[2022-07-25] MEDS ORDERED: **NOTE PATIENT COMMENT** MISC XX SCH (12:30)
[2022-07-25] MEDS ORDERED: diphenhydrAMINE 50MG/ML VIAL IV PRN (12:30)
[2022-07-25] MEDS: PRENATAL VITAMINS CHEWABLE TABLET PO SCH (13:53)
[2022-07-25] MEDS: ACETAMINOPHEN 500 MG TAB PO SCH ×3 (13:54→23:49)
[2022-07-25 13:57] LABS: BARBITURATES URINE REFLEX NEGATIVE (NEGATIVE)
[2022-07-25 14:30] LABS: CANNABINOIDS URINE REFLEX PENDING CONFIRMATION (NEGATIVE)
[2022-07-25] MEDS: KETOROLAC 30 MG/ML 1ML VIAL IV SCH ×2 (17:35→23:49)
[2022-07-26 02:00] VITALS: BP 102/58
[2022-07-26] MEDS: SLF 3 ML SYR IV SCH (04:30)
[2022-07-26] MEDS: ACETAMINOPHEN 500 MG TAB PO SCH ×5 (05:26→23:49)
[2022-07-26] MEDS: KETOROLAC 30 MG/ML 1ML VIAL IV SCH (05:26)
[2022-07-26 05:46] VITALS: BP 108/54
[2022-07-26 07:07] LABS: HEMATOCRIT 28.7 % (36.0-47.0); HEMOGLOBIN 9.8 g/dl (12.0-15.5); MEAN CORPUSCULAR HEMOGLOBIN 29.1 pg (27.0-33.0); MEAN CORPUSCULAR HGB CONC 34.1 g/dl (32.0-36.5); MEAN CORPUSCULAR VOLUME 85.2 fl (80.0-96.0); PLATELET COUNT, AUTOMATED 281 10^3/uL (150-450); RED BLOOD COUNT 3.37 10^6/uL (4.00-5.40); WHITE BLOOD COUNT 13.1 10^3/uL (4.0-10.0)
[2022-07-26] MEDS: SIMETHICONE 80MG CHEW TAB PO PRN (08:29)
[2022-07-26] MEDS: PRENATAL VITAMINS CHEWABLE TABLET PO SCH (08:29)
[2022-07-26 10:00] VITALS: BP 101/58
[2022-07-26] MEDS ORDERED: IBUP-1022 PO (11:46)
[2022-07-26] MEDS ORDERED: OXYC-517 PO (11:46)
[2022-07-26] MEDS ORDERED: ACET-683 PO (11:46)
[2022-07-26] MEDS ORDERED: IBUPROFEN 600MG TAB PO SCH (13:00)
[2022-07-26 14:00] VITALS: BP 113/66
[2022-07-26 18:14] VITALS: BP 134/71
[2022-07-26 22:00] VITALS: BP 108/63
[2022-07-27 02:00] VITALS: BP 101/57
[2022-07-27] MEDS: ACETAMINOPHEN 500 MG TAB PO SCH ×3 (05:55→23:42)
[2022-07-27 06:00] VITALS: BP 122/75
[2022-07-27] MEDS ORDERED: MEASLES,MUMPS,RUBELLA VACCINE INJ (MMR-II) (90707) SC.IMMUN ONE (09:00)
[2022-07-27] MEDS: PRENATAL VITAMINS CHEWABLE TABLET PO SCH (09:18)
[2022-07-27] MEDS: SIMETHICONE 80MG CHEW TAB PO PRN (09:18)
[2022-07-27 17:58] VITALS: BP 125/75
[2022-07-28 05:45] VITALS: BP 129/84
[2022-07-28] MEDS: ACETAMINOPHEN 500 MG TAB PO SCH ×2 (07:17→13:17)
[2022-07-28] MEDS: PRENATAL VITAMINS CHEWABLE TABLET PO SCH (08:22)
[2022-07-31 05:07] LABS: Cannabinoid Positive (.); Carboxy THC Conf, MS, UR 28 ng/mL (Cutoff=10)
== END 2022-07-28 17:07 | disposition home or self-care (01) | DRG 540 ==
LOC: M LDO 02:07 → M LDI 03:08 → M OBS 13:40
PROVIDERS: ADMIT Obstetrics & Gynecology; ATTEND Obstetrics & Gynecology
PROC: 0UT70ZZ Resection of Bilateral Fallopian Tubes, Open Approach (ICD-10-PCS; 2022-07-25)
PROC: 10D00Z1 Extraction of Products of Conception, Low, Open Approach (ICD-10-PCS; principal; 2022-07-25 09:00)
DX: O42.02 Full-term premature rupture of membranes, onset of labor within 24 hours of rupture (principal); O34.211 Maternal care for low transverse scar from previous cesarean delivery; Z3A.37 37 weeks gestation of pregnancy; Z37.0 Single live birth; Z30.2 Encounter for sterilization

== ENCOUNTER → 2023-08-31 | Outpatient (CLI) | payer OTHER, SELFPAY ==
[~2023-08-31] MED LIST changes: +ACET-683 PO; +ACET-897 PO; +ARTIDRO4 OS; +IBUP-1022 PO; +OXYC-517 PO; -POLYOPD OS
[2023-08-31 09:25] LABS: BASO % 0.7 % (0.0-1.0); EOS # 0.2 10^3/uL (0.0-0.5); EOS % 4.4 % (0.0-3.0); HEMOGLOBIN 11.3 g/dl (12.0-15.5); LYMPH # 2.5 10^3/uL (1.5-5.0); LYMPH % 45.5 % (24.0-44.0); MEAN CORPUSCULAR HEMOGLOBIN 27.8 pg (27.0-33.0); MEAN CORPUSCULAR HGB CONC 33.2 g/dl (32.0-36.5); MEAN CORPUSCULAR VOLUME 83.7 fl (80.0-96.0); MONO # 0.4 10^3/uL (0.0-0.8); MONO % 6.9 % (2.0-8.0); NEUTROPHILS # 2.3 10^3/uL (1.5-8.5); NEUTROPHILS % 42.1 % (36.0-66.0); PLATELET COUNT, AUTOMATED 351 10^3/uL (150-450); RED BLOOD COUNT 4.06 10^6/uL (4.00-5.40); WHITE BLOOD COUNT 5.5 10^3/uL (4.0-10.0)
[2023-08-31 09:29] LABS: HEMOGLOBIN A1c 5.4 % (4.0-6.0)
[2023-08-31 09:49] LABS: ALBUMIN 3.6 G/DL (3.2-5.2); ALKALINE PHOSPHATASE 68 U/L (46-116); ALT/SGPT 13 U/L (7.0-40); AST/SGOT 9 U/L (<34); BILIRUBIN,TOTAL 0.2 MG/DL (0.3-1.2); BLOOD UREA NITROGEN 8 MG/DL (9-23); CALCIUM LEVEL 8.8 MG/DL (8.5-10.1); CARBON DIOXIDE LEVEL 28 MMOL/L (20-31); CHLORIDE LEVEL 108 MMOL/L (98-107); CHOLESTEROL LEVEL 181 MG/DL (<200); CHOLESTEROL RISK RATIO 4.27 (<5); CREATININE FOR GFR 0.72 MG/DL (0.55-1.30); GLOMERULAR FILTRATION RATE > 60.0 (>60); GLUCOSE, FASTING 70 MG/DL (60-100); HDL CHOLESTEROL 42.3 MG/DL (>40); LDL CHOLESTEROL 116.9 MG/DL (<100); NON-HDL-C 138.7 MG/DL; POTASSIUM SERUM 4.2 MMOL/L (3.5-5.1); SODIUM LEVEL 140 MMOL/L (136-145); TOTAL PROTEIN 6.4 G/DL (5.7-8.2); TRIGLYCERIDES LEVEL 109 MG/DL (<150)
[2023-08-31 09:50] LABS: THYROID STIMULATING HORMONE 0.209 uIU/ML (0.55-4.78); TOTAL 25(OH) VITAMIN D 10.6 NG/ML (20.0-100.0)
[2023-08-31 09:51] LABS: VITAMIN B12 LEVEL 369 PG/ML (211-911)
== END ==
LOC: M LAB 08:43
PROVIDERS: ATTEND Specialist
DX: F28 Other psychotic disorder not due to a substance or known physiological condition (principal)

== ENCOUNTER → 2023-12-10 | Outpatient (CLI) | payer MEDICAID, OTHER ==
[2023-12-10 13:56] LABS: BASO % 0.5 % (0.0-1.0); EOS # 0.4 10^3/uL (0.0-0.5); HEMATOCRIT 34.4 % (36.0-47.0); HEMOGLOBIN 11.6 g/dl (12.0-15.5); LYMPH # 3.8 10^3/uL (1.5-5.0); LYMPH % 43.4 % (24.0-44.0); MEAN CORPUSCULAR HEMOGLOBIN 27.4 pg (27.0-33.0); MEAN CORPUSCULAR HGB CONC 33.7 g/dl (32.0-36.5); MEAN CORPUSCULAR VOLUME 81.3 fl (80.0-96.0); MONO # 0.6 10^3/uL (0.0-0.8); MONO % 6.6 % (2.0-8.0); NEUTROPHILS % 45.3 % (36.0-66.0); PLATELET COUNT, AUTOMATED 322 10^3/uL (150-450); RED BLOOD COUNT 4.23 10^6/uL (4.00-5.40); WHITE BLOOD COUNT 8.8 10^3/uL (4.0-10.0)
[2023-12-10 14:23] LABS: ALBUMIN 3.3 G/DL (3.2-5.2); ALKALINE PHOSPHATASE 64 U/L (46-116); ALT/SGPT 14 U/L (7.0-40); AST/SGOT 9 U/L (<34); BILIRUBIN,TOTAL 0.2 MG/DL (0.3-1.2); BLOOD UREA NITROGEN 11 MG/DL (9-23); CALCIUM LEVEL 8.6 MG/DL (8.5-10.1); CARBON DIOXIDE LEVEL 28 MMOL/L (20-31); CHLORIDE LEVEL 107 MMOL/L (98-107); CREATININE FOR GFR 1.03 MG/DL (0.55-1.30); GLOMERULAR FILTRATION RATE > 60.0 (>60); GLUCOSE, FASTING 90 MG/DL (60-100); POTASSIUM SERUM 4.2 MMOL/L (3.5-5.1); SODIUM LEVEL 142 MMOL/L (136-145); THYROID STIMULATING HORMONE 1.377 uIU/ML (0.55-4.78); TOTAL PROTEIN 6.7 G/DL (5.7-8.2)
[2023-12-10 14:24] LABS: TOTAL 25(OH) VITAMIN D 8.8 NG/ML (20.0-100.0)
[2023-12-10 14:25] LABS: FOLATE 22.01 NG/ML (>5.4); VITAMIN B12 LEVEL 286 PG/ML (211-911)
== END ==
LOC: M LAB 12:57
PROVIDERS: ATTEND Specialist
DX: F41.9 Anxiety disorder, unspecified (principal)